=== PATIENT | female | born 1940 | race Caucasian/White ===

== ENCOUNTER → 2022-11-14 | Outpatient (CLI) | payer MEDICARE ==
[~2022-11-14] MED LIST: ATENOLOL25 MG; LEVOTHYROXINE13 MCG; TIZANIDINE HYDRO2 M1 PO
[2022-11-14 12:25] LABS: BASO # 0.05 K/mm3 (0.02-0.10); EOS # 0.39 K/mm3 (0.04-0.40); EOS % 6.5 % (1.0-5.0); HEMATOCRIT 39.7 % (37.0-47.0); LYMPH# 2.09 K/mm3 (1.50-4.00); MEAN CELL VOLUME 94 fl (78-100); MEAN CORPUSCULAR HEMOGLOBIN 31 pg (27-31); MEAN CORPUSCULAR HGB CONC 33 g/dL (33-37); MEAN PLATELET VOLUME 11.5 fl (7.4-10.4); MONO # 0.68 K/mm3 (0.20-0.80); NEU # 2.78 K/mm3 (1.40-6.50); PLATELET COUNT 170 K/mm3 (130-400); RED BLOOD COUNT 4.24 M/mm3 (4.10-5.30); RED CELL DISTRIBUTION WIDTH 12.8 % (11.5-14.5)
[2022-11-14 13:24] LABS: POTASSIUM 3.9 mmol/L (3.5-5.1)
[2022-11-14 13:25] LABS: CALCIUM 9.3 mg/dL (8.3-10.5)
[2022-11-14 13:27] LABS: TOTAL PROTEIN 7.1 g/dL (6.2-8.1)
[2022-11-14 13:28] LABS: TOTAL BILIRUBIN 0.3 mg/dL (0.2-1.2)
== END ==
LOC: LAB 12:05
PROVIDERS: Physician Assistant
DX: Z76.89 Persons encountering health services in other specified circumstances (principal); E07.9 Disorder of thyroid, unspecified; I10 Essential (primary) hypertension; M19.90 Unspecified osteoarthritis, unspecified site; M79.672 Pain in left foot; R41.3 Other amnesia; K90.9 Intestinal malabsorption, unspecified; E78.5 Hyperlipidemia, unspecified; M25.50 Pain in unspecified joint

== ENCOUNTER 2023-05-03 08:43 | Emergency (ER) | payer MEDICARE ==
[~2023-05-03] VITALS: Ht 152.4 cm; Wt 54.6 kg
[~2023-05-03 08:43] MED LIST changes: +ATENOLOL25 MG PO; -LEVOTHYROXINE13 MCG; +LEVOTHYROXINE13 MCG PO
[2023-05-03 09:23] LABS: BASO # 0.04 K/mm3 (0.02-0.10); EOS # 0.19 K/mm3 (0.04-0.40); EOS % 3.9 % (1.0-5.0); HEMOGLOBIN 12.2 g/dL (12.5-16.0); LYMPH# 1.08 K/mm3 (1.50-4.00); MEAN CELL VOLUME 93 fl (78-100); MEAN CORPUSCULAR HEMOGLOBIN 30 pg (27-31); MEAN CORPUSCULAR HGB CONC 32 g/dL (33-37); MEAN PLATELET VOLUME 12.3 fl (7.4-10.4); MONO # 0.58 K/mm3 (0.20-0.80); NEU # 3.03 K/mm3 (1.40-6.50); PLATELET COUNT 177 K/mm3 (130-400); RED BLOOD COUNT 4.08 M/mm3 (4.10-5.30); RED CELL DISTRIBUTION WIDTH 12.8 % (11.5-14.5); WHITE BLOOD COUNT 4.9 K/mm3 (4.8-10.8)
[2023-05-03 09:27] LABS: SODIUM 141 mmol/L (136-145)
[2023-05-03 09:28] LABS: ALBUMIN 3.9 g/dL (3.4-4.8)
[2023-05-03 09:30] LABS: TOTAL PROTEIN 6.7 g/dL (6.2-8.1)
[2023-05-03 09:31] LABS: CARBON DIOXIDE 25 mmol/L (23-31); GLUCOSE 79 mg/dL (65-105)
[2023-05-03 09:32] LABS: TOTAL BILIRUBIN 0.4 mg/dL (0.2-1.2)
[2023-05-03 09:35] LABS: AST-SGOT 86 U/L (5-34)
[2023-05-03] MEDS ORDERED: LOSARTAN POTASS50 M1 PO (09:36)
[2023-05-03 09:38] LABS: ALT/SGPT 71 U/L (0-55)
[2023-05-03] MEDS ORDERED: AMBIEN5 M1 PO (09:38)
[2023-05-03] MEDS ORDERED: FISH OIL 1,201200 MG PO (09:39)
[2023-05-03] MEDS ORDERED: VITAMIN D350 MCG PO (09:41)
[2023-05-03] MEDS ORDERED: BROMELAIN PO (09:42)
[2023-05-03] MEDS ORDERED: TUMERSAID PO (09:42)
[2023-05-03] MEDS ORDERED: NIACIN50 M1 PO (09:43)
[2023-05-03] MEDS ORDERED: [UNRECOGNIZED DRUG - OTHER] PO (09:43)
[2023-05-03] MEDS ORDERED: GLUCOSAMINE CH1 EAC4 PO (09:43)
[2023-05-03] MEDS ORDERED: VITAMIN C PUR1000 MG (09:45)
[2023-05-03] MEDS ORDERED: [UNRECOGNIZED DRUG - OTHER] PO (09:45)
[2023-05-03 09:46] LABS: TROPONIN-I < 0.030 ng/mL (0.00-0.033)
[2023-05-03 10:48] VITALS: BP 148/75
[2023-05-03 10:56] LABS: PH-URINE 7.5 (5.0 - 8.0); URINE APPEARANCE CLEAR (CLEAR); URINE BILIRUBIN NEGATIVE (NEGATIVE); URINE BLOOD NEGATIVE (NEGATIVE); URINE COLOR YELLOW (YELLOW); URINE GLUCOSE NEGATIVE (NEGATIVE); URINE KETONE NEGATIVE (NEGATIVE); URINE LEUKOCYTE ESTERASE NEGATIVE (NEGATIVE); URINE NITRATE NEGATIVE (NEGATIVE); URINE PROTEIN(semi-quant) NEGATIVE (NEGATIVE); URINE WBC 0 /hpf (0-3)
== END 2023-05-03 10:49 | disposition home or self-care (01) ==
LOC: ED 08:43
PROVIDERS: Nurse Practitioner
DX: R06.02 Shortness of breath (principal); I87.2 Venous insufficiency (chronic) (peripheral); I10 Essential (primary) hypertension; Z79.899 Other long term (current) drug therapy

== ENCOUNTER → 2024-04-01 | Outpatient (CLI) | payer MEDICARE ==
[~2024-04-01] MED LIST changes: +AMBIEN5 M1 PO; +BROMELAIN PO; +FISH OIL 1,201200 MG PO; +GLUCOSAMINE CH1 EAC4 PO; +LOSARTAN POTASS50 M1 PO; +NIACIN50 M1 PO; +TUMERSAID PO; +VITAMIN C PUR1000 MG; +VITAMIN D350 MCG PO; +[UNRECOGNIZED DRUG - OTHER] PO; +[UNRECOGNIZED DRUG - OTHER] PO
[2024-04-01 15:24] LABS: BASO # 0.06 K/mm3 (0.02-0.10); EOS # 0.22 K/mm3 (0.04-0.40); EOS % 3.3 % (1.0-5.0); HEMATOCRIT 41.1 % (37.0-47.0); HEMOGLOBIN 13.3 g/dL (12.5-16.0); LYMPH# 2.43 K/mm3 (1.50-4.00); MEAN CELL VOLUME 94 fl (78-100); MEAN CORPUSCULAR HEMOGLOBIN 31 pg (27-31); MEAN CORPUSCULAR HGB CONC 32 g/dL (33-37); NEU # 3.14 K/mm3 (1.40-6.50); PLATELET COUNT 199 K/mm3 (130-400); RED BLOOD COUNT 4.36 M/mm3 (4.10-5.30); RED CELL DISTRIBUTION WIDTH 12.3 % (11.5-14.5); WHITE BLOOD COUNT 6.7 K/mm3 (4.8-10.8)
[2024-04-01 15:29] LABS: ALBUMIN 4.3 g/dL (3.4-4.8)
[2024-04-01 15:30] LABS: CALCIUM 9.5 mg/dL (8.3-10.5)
[2024-04-01 15:31] LABS: TOTAL PROTEIN 7.2 g/dL (6.2-8.1)
[2024-04-01 15:33] LABS: TOTAL BILIRUBIN 0.5 mg/dL (0.2-1.2)
== END ==
LOC: LAB 14:47
PROVIDERS: Physician Assistant
DX: I10 Essential (primary) hypertension (principal); E07.9 Disorder of thyroid, unspecified; E78.5 Hyperlipidemia, unspecified